=== PATIENT | male | born 1960 | race Caucasian/White ===

== ENCOUNTER → 2020-09-11 14:25 | Outpatient (BNVA) | payer MEDICARE, SELFPAY | PROVIDERS: Visit Provider Family Medicine | DX: Z86.79 Personal history of other diseases of the circulatory system (principal); Z13.220 Encounter for screening for lipoid disorders; Z13.29 Encounter for screening for other suspected endocrine disorder | CPT/HCPCS: 80053; 80061; 84443; 85025 ==